=== PATIENT | male | born 1980 | race Caucasian/White ===

== ENCOUNTER 2024-04-02 10:10 | Emergency (ER) | payer OTHER, SELFPAY ==
[2024-04-02 10:13] VITALS: BP 148/89; PULSE 71; TEMP 36.4; O2SAT 98; BMI 27.8
--- NOTE | 2024-04-02 10:29 | ED.WOUNDLAC ---
HPI - Wound/Laceration General Chief Complaint: Laceration/Wound Stated Complaint: laceration - head parcel post delivery Time Seen by Provider: 04/02/24 10:20 History of Present Illness HPI narrative: This 44-year-old male comes in with a injury to his head. He was using a parcel post delivery and the weight on top of the tool accidentally hit him on the upper part of his forehead. He has injury to this area just above the hairline. He did not have loss of consciousness. Related Data Previous Rx's ?Medication ?Instructions ?Recorded ketorolac 10 mg tablet 10 mg PO Q8H 5 days #15 tabs 04/02/24 Allergies Allergy/AdvReac Type Severity Reaction Status Date / Time No Known Drug Allergies Allergy Verified 04/02/24 10:19 Review of Systems Status of ROS: Reports: 10 or more systems reviewed and unremarkable except as noted in History and below Narrative: Constitutional: No fevers, no weight gain or loss. Eyes: No discharge. No vision changes. HENT: No congestion, no sore throat, no ear pain. Cardiovascular: No chest pain, no palpitations. Respiratory: No shortness of breath, no wheezes, no cough. Gastrointestinal: No abdominal pain, no vomiting, no diarrhea. Genitourinary: No dysuria, no hematuria. Musculoskeletal: Normal range of motion. Skin: No rashes, no pruritis. Neurological: No dizziness, weakness, sensory change, speech change. Endo/Heme/Allergies: No bruising or bleeding. No polydipsia. Pysch: no suicidality, no anxiety, no insomnia. All other systems reviewed and are negative. Exam Narrative: Exam Narrative: Constitutional: Well-developed, well-nourished, no acute distress. HEENT: 3 cm wound on the forehead. Neck: Normal range of motion. Nontender. Supple. Heart: Intact distal pulses. Lungs: No chest discomfort. No wheezes, rhonchi, or rales. Abdomen: Nontender. Back: Normal range of motion. Extremities: Normal range of motion. No injury. Skin: Intact. No rash. Warm. No erythema or pallor. Neurologic: No altered sensation. No weakness. Alert and oriented. Psychiatric: No suicidality. No anxiety or depression. No insomnia. Nursing notes and vitals signs are reviewed. Const: Vital Signs, click to edit/add: Vital Signs - 24 hr 04/02/24 10:13 04/02/24 10:41 Temperature 97.5 F L Pulse Rate [Right Pulse Oximeter] 71 Respiratory Rate 18 Blood Pressure [Ri ght Upper Arm] 148/89 H Pulse Oximetry 98 Oxygen Delivery Me thod Room Air Course Vital Signs Vital signs: Initial Vital Signs Temperature 97.5 F L 04/02/24 10:13 Temperature Source Temporal Artery Scan 04/02/24 10:13 Pulse Rate 71 04/02/24 10:13 Pulse Rhythm Regular 04/02/24 10:13 Blood Pressure 148/89 H 04/02/24 10:13 Blood Pressure Mean 108 H 04/02/24 10:13 Blood Pressure Position Sitting 04/02/24 10:13 Pulse Oximetry 98 04/02/24 10:13 Oxygen Delivery Method Room Air 04/02/24 10:13 Vital Signs Temperature 97.5 F L 04/02/24 10:13 Pulse Rate 71 04/02/24 10:13 Blood Pressure 148/89 H 04/02/24 10:13 Pulse Oximetry 98 04/02/24 10:13 Oxygen Delivery Method Room Air 04/02/24 10:13 Temperature 97.5 F L 04/02/24 10:13 Pulse Rate 71 04/02/24 10:13 Respiratory Rate 18 04/02/24 10:41 Blood Pressure 148/89 H 04/02/24 10:13 Pulse Oximetry 98 04/02/24 10:13 Oxygen Delivery Method Room Air 04/02/24 10:13 MDM - Wound/Laceration MDM Narrative Medical decision making narrative: This patient has a 3 cm linear laceration above the hairline on his upper forehead. Wound edges are nicely approximated. The wound was cleansed and explored to its base. I did offer repair options including clemente and Dermabond. The wound edges are nicely in place so Dermabond was applied to seal the wound. Instructions regarding wound care were given. The patient's last tetanus was 8 years ago so he did receive an update of tetanus vaccination today. I did provide a prescription for Toradol. Discharge Plan Discharge Clinical Impression: Laceration Patient Disposition: Home, Self-Care Condition: Improved Additional Instructions: Keep wound clean and dry. Use Toradol as needed and directed. Follow up with MD return if worsening. Prescriptions: New ketorolac 10 mg tablet 10 mg PO Q8H 5 Days Qty: 15 0RF Stand Alone Forms: [facility] Info Instructions
[2024-04-02 10:41] VITALS: RESP 18
--- NOTE | 2024-04-02 10:41 | ED.NURSE ---
Forhead/head cleaned with warm water and wash clothes to expose laceration.
[2024-04-02] MEDS: TETANUS/DIPHTH/PERTUSSIS 0.5 ML SYRINGE IM (10:57)
== END 2024-04-02 11:08 | disposition home or self-care (01) ==
LOC: ED 11:05
PROVIDERS: Emergency Provider Emergency Medicine Emergency Medical Services
DX: S01.81XA Laceration without foreign body of other part of head, initial encounter (principal)
CPT/HCPCS: 12013; 90471; 90715; 99283; 99284